=== PATIENT | male | born 2000 | race Caucasian/White ===

== ENCOUNTER 2020-10-09 10:42 | Emergency (ER) | payer SELFPAY ==
[~2020-10-09] VITALS: Ht 180.3 cm; Wt 86.7 kg
[2020-10-09 10:49] VITALS: BP 115/93
--- NOTE | 2020-10-09 10:55 | NUR ---
PT TO SIT OUTSIDE AND WAIT FOR DOCTOR EVALUATION.
[2020-10-09] MEDS ORDERED: ACETAMINOPHEN EXTRA STRENGTH 500 MG TAB PO ONE (11:20)
--- NOTE | 2020-10-09 11:43 | NUR ---
Patient being evaluated by physician Dr. Alberts outside of ER entrance.
[2020-10-09 12:09] VITALS: BP 115/93
--- NOTE | 2020-10-09 12:09 | NUR ---
NOVEL SWAB COLLECTED AND SENT TO LAB.
--- NOTE | 2020-10-09 12:09 | NUR ---
Patient discharged with v/s stable. Written and verbal after care instructions given and explained. Patient verbalized understanding. Ambulatory with steady gait. All questions addressed prior to discharge. Advised to follow up with PMD. Pt advised covid results take 2-3 days.
== END 2020-10-09 12:09 | disposition home or self-care (01) ==
LOC: MED 10:42
DX: R05 Cough (principal); Z20.822 Contact with and (suspected) exposure to COVID-19; R50.9 Fever, unspecified
CPT/HCPCS: 99283; U0003